=== PATIENT | female | born 1945 | race Two or more races ===

== ENCOUNTER 2021-07-11 15:13 | Inpatient (IN) | payer OTHER ==
[~2021-07-11] VITALS: Ht 162.6 cm; Wt 68.0 kg
--- NOTE | 2021-07-11 15:13 | NUR ---
PT BIBRA 84 FROM HOME C/O COUGH AND WORSENING SOB X 1 WEEK. PT IS AAOX4, NOTED 91% ON RA. HOOKED TO O2 AT 2LPM VIA NC AND WIDE AREA NETWORK ENGINEER. KEPT RESTED AND COMFORTABLE. WILL CONTINUE TO MONITOR.
[2021-07-11] MEDS ORDERED: DEXAMETHASONE SOD PHOSPHATE 4 MG/ML VIAL IV ONE (16:30)
--- NOTE | 2021-07-11 16:40 | NUR ---
IV LINE IS ESTABLISHED, BLOOD SPECIMEN COLLECTED AND SENT TO THE LAB. THE LINE IS SALINE LOCKED.
[2021-07-11] MEDS ORDERED: CYCL10TA9 PO ×2 (16:47)
[2021-07-11] MEDS ORDERED: MULT-1160 PO (16:47)
[2021-07-11] MEDS ORDERED: ATOR40TA PO (16:47)
[2021-07-11] MEDS ORDERED: LISI20TA30 PO (16:47)
[2021-07-11] MEDS ORDERED: GABA600T12 PO (16:47)
[2021-07-11] MEDS ORDERED: ATEN50TA PO (16:47)
[2021-07-11] MEDS ORDERED: ALBU8.5H8 IH (16:47)
[2021-07-11] MEDS ORDERED: CLON0.5T4 PO (16:47)
[2021-07-11] MEDS ORDERED: PANT40TA49 PO (16:47)
[2021-07-11] MEDS ORDERED: VIT1CAPS44 PO (16:47)
[2021-07-11] MEDS ORDERED: DOXY-326 PO (16:47)
[2021-07-11] MEDS ORDERED: AMLO-213 PO (16:47)
[2021-07-11] MEDS ORDERED: DEXAMETHASONE SOD PHOSPHATE 10 MG/ML VIAL ONE (17:00)
[2021-07-11 17:17] LABS: BASOPHILS % (AUTO) 0.5 % (0.0-2.0); EOSINOPHILS % (AUTO) 7.7 % (0.0-6.0); HEMATOCRIT 41 % (33-45); HEMOGLOBIN 13.8 g/dL (11.5-14.8); LYMPHOCYTES # (AUTO) 1.3 K/uL (0.8-4.8); LYMPHOCYTES % (AUTO) 14.4 % (20.0-44.0); MEAN CORPUSCULAR HGB CONC 34 g/dl (31.0-36.0); MEAN CORPUSCULAR VOLUME 84 fL (82-100); MONOCYTES # (AUTO) 0.7 K/uL (0.1-1.30); MONOCYTES % (AUTO) 7.8 % (2.0-12.0); NEUTROPHILS # (AUTO) 6.4 K/uL (1.8-8.9); NEUTROPHILS % (AUTO) 69.6 % (43.0-81.0); PLATELET COUNT (AUTO) 193 K/uL (150-450); RED BLOOD CELL COUNT(AUTO) 4.86 MIL/uL (4.0-5.2); WHITE BLOOD COUNT (AUTO) 9.3 K/uL (4.3-11.0)
--- NOTE | 2021-07-11 17:17 | NUR ---
COVID ANTIGEN AND PCR SWABS DONE AND SENT TO THE LAB
[2021-07-11 17:37] LABS: D-DIMER 1.1 mg/L(FEU (0.17-0.50)
[2021-07-11 17:46] LABS: CARBON DIOXIDE 27 mmol/L (21-32); CHLORIDE 106 mmol/L (98-107); CREATININE 0.8 mg/dL (0.6-1.3); GLUCOSE 85 mg/dL (74-106); POTASSIUM 3.9 mmol/L (3.5-5.1); SODIUM SERUM 145 mmol/L (136-145); UREA NITROGEN, BLOOD 13 mg/dL (7-18)
[2021-07-11 17:48] LABS: CREATINE KINASE, TOTAL 138 U/L (26-192)
[2021-07-11 18:00] LABS: C-REACTIVE PROTEIN < 0.2 mg/dL (0.0-0.9)
[2021-07-11 18:04] LABS: ALANINE AMINOTRANSFERASE 22 U/L (12-78); ALBUMIN 4.1 g/dL (3.4-5.0); ALKALINE PHOSPHATASE 114 U/L (46-116); ASPARTATE AMINOTRANSFERASE 15 U/L (15-37); BILIRUBIN,TOTAL 0.7 mg/dL (0.2-1.0); TOTAL PROTEIN, SERUM 7.6 g/dL (6.4-8.2)
[2021-07-11] MEDS ORDERED: IPRATROPIUM NEB FS 0.5 MG/2.5 ML AMPUL.NEB ONE (18:27)
[2021-07-11] MEDS ORDERED: ALBUTEROL FS 2.5 MG/3 ML VIAL.NEB ONE (18:27)
[2021-07-11] MEDS ORDERED: ALBUTEROL FS 2.5 MG/3 ML VIAL.NEB NEB ONE (18:30)
[2021-07-11] MEDS ORDERED: IPRATROPIUM NEB FS 0.5 MG/2.5 ML AMPUL.NEB NEB ONE (18:30)
--- NOTE | 2021-07-11 19:11 | NUR ---
MANDI HERNANDEZ CALLED AND GAVE AUTH # [id number].
[2021-07-11] MEDS ORDERED: HYDROCODONE/APAP 5/325MG TABLET ONE (19:28)
[2021-07-11] MEDS ORDERED: HYDROCODONE/APAP 5/325MG TABLET PO ONE (19:30)
[2021-07-11] MEDS ORDERED: IOHEXOL-350 100 ML VIAL IV ONE (19:39)
[2021-07-11] MEDS ORDERED: MAGNESIUM HYDROXIDE 30 ML UDC PO PRN (20:30)
[2021-07-11] MEDS ORDERED: ZOLPIDEM TARTRATE 5 MG TABLET PO PRN (20:30)
[2021-07-11] MEDS ORDERED: ONDANSETRON HCL/PF 4 MG/2 ML VIAL IVP PRN (20:30)
[2021-07-11] MEDS ORDERED: MAG HYDROX/AL HYDROX/SIMETH 30 ML UDC PO PRN (20:30)
[2021-07-11] MEDS ORDERED: Z GUARD REMEDY 4 OZ OINT TP PRN (20:30)
[2021-07-11] MEDS ORDERED: IPRATROPIUM NEB FS 0.5 MG/2.5 ML AMPUL.NEB NEB PRN (20:30)
[2021-07-11] MEDS ORDERED: ALBUTEROL FS 2.5 MG/3 ML VIAL.NEB NEB PRN (20:30)
[2021-07-11] MEDS: CYCLOBENZAPRINE 10 MG TABLET PO SCH (21:00)
[2021-07-11] MEDS ORDERED: clonazePAM 0.5 MG TABLET ONE (22:43)
[2021-07-11] MEDS ORDERED: CYCLOBENZAPRINE 10 MG TABLET ONE (22:43)
[2021-07-11] MEDS: clonazePAM 0.5 MG TABLET PO SCH (22:50)
[2021-07-12] MEDS ORDERED: ACETAMINOPHEN 325 MG TABLET ONE ×2 (00:40→11:25)
[2021-07-12] MEDS: ACETAMINOPHEN 325 MG TABLET PO PRN ×2 (00:44→11:27)
[2021-07-12] MEDS ORDERED: ZOLPIDEM TARTRATE 5 MG TABLET ONE ×2 (03:23→22:07)
--- NOTE | 2021-07-12 03:24 | NUR ---
PER DR CHRIS LITTLE TO GIVE AMBIEN ONCE.
[2021-07-12] MEDS ORDERED: ZOLPIDEM TARTRATE 5 MG TABLET PO PRN (03:30)
[2021-07-12 08:04] LABS: BASOPHILS % (AUTO) 0.1 % (0.0-2.0); EOSINOPHILS % (AUTO) 0.2 % (0.0-6.0); HEMATOCRIT 40 % (33-45); HEMOGLOBIN 13.6 g/dL (11.5-14.8); LYMPHOCYTES # (AUTO) 0.9 K/uL (0.8-4.8); MEAN CORPUSCULAR HGB CONC 34 g/dl (31.0-36.0); MEAN CORPUSCULAR VOLUME 83 fL (82-100); MONOCYTES # (AUTO) 0.1 K/uL (0.1-1.30); MONOCYTES % (AUTO) 1.5 % (2.0-12.0); NEUTROPHILS # (AUTO) 6.3 K/uL (1.8-8.9); NEUTROPHILS % (AUTO) 86.2 % (43.0-81.0); PLATELET COUNT (AUTO) 193 K/uL (150-450); RED BLOOD CELL COUNT(AUTO) 4.82 MIL/uL (4.0-5.2); WHITE BLOOD COUNT (AUTO) 7.3 K/uL (4.3-11.0)
[2021-07-12 08:21] LABS: CALCIUM, SERUM 10.2 mg/dL (8.5-10.1); CREATININE 0.8 mg/dL (0.6-1.3); MAGNESIUM 2.3 mg/dL (1.8-2.4); PHOSPHORUS 4.7 mg/dL (2.5-4.9); POTASSIUM 3.8 mmol/L (3.5-5.1)
[2021-07-12] MEDS ORDERED: GABAPENTIN 300 MG CAPSULE ONE ×3 (08:56→17:28)
[2021-07-12] MEDS ORDERED: CYCLOBENZAPRINE 10 MG TABLET ONE ×2 (08:56→21:18)
[2021-07-12] MEDS ORDERED: DOXYCYCLINE HYCLATE (100 MG) 100 MG TABLET ONE ×2 (08:56→21:18)
[2021-07-12] MEDS ORDERED: PANTOPRAZOLE 40 MG TABLET.DR PO ONE ×2 (08:57→17:28)
[2021-07-12] MEDS: PANTOPRAZOLE 40 MG TABLET.DR PO SCH ×2 (08:59→17:30)
[2021-07-12] MEDS: CYCLOBENZAPRINE 10 MG TABLET PO SCH ×2 (09:02→21:21)
[2021-07-12] MEDS: MULTIVITAMIN/LUTEIN/MINERALS 1 TAB PO SCH (09:03)
[2021-07-12] MEDS: DOXYCYCLINE HYCLATE (100 MG) 100 MG TABLET PO SCH ×2 (09:03→21:21)
[2021-07-12] MEDS: MULTIVIT W/MINERALS 1 TAB TABLET PO SCH (09:03)
[2021-07-12] MEDS: GABAPENTIN 300 MG CAPSULE PO SCH ×3 (09:03→17:30)
--- NOTE | 2021-07-12 09:03 | NUR ---
PROVIDED BREAKFAST, TOLERATED WELL
[2021-07-12] MEDS ORDERED: MORPHINE SULFATE INJ 2 MG/ML DISP.SYRIN IV PRN (12:30)
[2021-07-12] MEDS ORDERED: DEXAMETHASONE SOD PHOSPHATE 10 MG/ML VIAL ONE (12:51)
[2021-07-12] MEDS ORDERED: ENOXAPARIN SODIUM 40 MG/0.4 ML DISP.SYRIN SQ ONE (12:51)
[2021-07-12] MEDS: ENOXAPARIN SODIUM 40 MG/0.4 ML DISP.SYRIN SQ SCH (13:00)
[2021-07-12] MEDS: DEXAMETHASONE SOD PHOSPHATE 10 MG/ML VIAL IV SCH (13:00)
--- NOTE | 2021-07-12 14:41 | NUR ---
ATTEMPTED TO GIVE REPORT, RN ON LUNCH, WILL CALL AGAIN
--- NOTE | 2021-07-12 14:59 | NUR ---
GOING TO BED 108
[2021-07-12] MEDS ORDERED: IPRATROPIUM BROMIDE 14 GM INHALER (or 12.9 GM) IH PRN (15:00)
[2021-07-12] MEDS ORDERED: ALBUTEROL SULFATE 8 GM HFA.AER.AD IH PRN (15:00)
[2021-07-12] MEDS: AMLODIPINE BESYLATE 10 MG TABLET PO SCH (18:00)
[2021-07-12] MEDS ORDERED: ATORVASTATIN 40 MG TABLET ONE (18:00)
[2021-07-12] MEDS ORDERED: ATENOLOL 50 MG TABLET ONE (18:01)
[2021-07-12] MEDS ORDERED: AMLODIPINE BESYLATE 10 MG TABLET ONE (18:01)
[2021-07-12] MEDS: ATORVASTATIN 40 MG TABLET PO SCH (18:05)
[2021-07-12] MEDS: ATENOLOL 50 MG TABLET PO SCH (18:06)
[2021-07-12] MEDS: LISINOPRIL (20MG) 20 MG TABLET PO SCH (19:10)
[2021-07-12] MEDS ORDERED: clonazePAM 0.5 MG TABLET ONE (22:01)
[2021-07-12] MEDS: clonazePAM 0.5 MG TABLET PO SCH (22:11)
--- NOTE | 2021-07-12 23:18 | NUR ---
PATIENT WATCHING TV ON THE PHONE NO C/O AT THIS TIME.
--- NOTE | 2021-07-12 23:48 | NUR ---
PT PROVIDED WITH PILLOW FOR COMFORT.
[2021-07-13] MEDS: CYCLOBENZAPRINE 10 MG TABLET PO PRN ×2 (00:54→14:52)
[2021-07-13] MEDS ORDERED: CYCLOBENZAPRINE 10 MG TABLET ONE ×3 (00:54→14:51)
[2021-07-13] MEDS ORDERED: ACETAMINOPHEN 325 MG TABLET ONE (03:50)
[2021-07-13] MEDS: ACETAMINOPHEN 325 MG TABLET PO PRN (03:53)
[2021-07-13 05:56] LABS: BASOPHILS % (AUTO) 0.2 % (0.0-2.0); EOSINOPHILS % (AUTO) 0.1 % (0.0-6.0); HEMATOCRIT 39 % (33-45); HEMOGLOBIN 13.1 g/dL (11.5-14.8); LYMPHOCYTES # (AUTO) 1.1 K/uL (0.8-4.8); LYMPHOCYTES % (AUTO) 9.6 % (20.0-44.0); MEAN CORPUSCULAR HGB CONC 34 g/dl (31.0-36.0); MEAN CORPUSCULAR VOLUME 84 fL (82-100); MONOCYTES # (AUTO) 0.5 K/uL (0.1-1.30); MONOCYTES % (AUTO) 4.7 % (2.0-12.0); NEUTROPHILS # (AUTO) 9.7 K/uL (1.8-8.9); NEUTROPHILS % (AUTO) 85.4 % (43.0-81.0); PLATELET COUNT (AUTO) 198 K/uL (150-450); RED BLOOD CELL COUNT(AUTO) 4.62 MIL/uL (4.0-5.2); WHITE BLOOD COUNT (AUTO) 11.3 K/uL (4.3-11.0)
[2021-07-13 06:14] LABS: CARBON DIOXIDE 27 mmol/L (21-32); CHLORIDE 104 mmol/L (98-107); POTASSIUM 3.8 mmol/L (3.5-5.1); SODIUM SERUM 140 mmol/L (136-145)
[2021-07-13 06:15] LABS: CALCIUM, SERUM 10.3 mg/dL (8.5-10.1); CREATININE 0.8 mg/dL (0.6-1.3); GLUCOSE 135 mg/dL (74-106); MAGNESIUM 2.4 mg/dL (1.8-2.4); PHOSPHORUS 3.3 mg/dL (2.5-4.9); UREA NITROGEN, BLOOD 20 mg/dL (7-18)
[2021-07-13] MEDS ORDERED: PANTOPRAZOLE 40 MG TABLET.DR PO ONE ×2 (07:40→16:52)
[2021-07-13] MEDS: PANTOPRAZOLE 40 MG TABLET.DR PO SCH ×2 (07:40→16:41)
[2021-07-13] MEDS ORDERED: DEXAMETHASONE SOD PHOSPHATE 10 MG/ML VIAL ONE (09:07)
[2021-07-13] MEDS ORDERED: DOXYCYCLINE HYCLATE (100 MG) 100 MG TABLET ONE (09:08)
[2021-07-13] MEDS ORDERED: GABAPENTIN 300 MG CAPSULE ONE ×2 (09:08→14:28)
[2021-07-13] MEDS ORDERED: MULTIVIT W/MINERALS 1 TAB TABLET ONE (09:09)
[2021-07-13] MEDS: CYCLOBENZAPRINE 10 MG TABLET PO SCH ×2 (09:19→22:11)
[2021-07-13] MEDS: GABAPENTIN 300 MG CAPSULE PO SCH ×3 (09:20→22:12)
[2021-07-13] MEDS: MULTIVIT W/MINERALS 1 TAB TABLET PO SCH (09:20)
[2021-07-13] MEDS: DEXAMETHASONE SOD PHOSPHATE 10 MG/ML VIAL IV SCH (09:20)
[2021-07-13] MEDS: DOXYCYCLINE HYCLATE (100 MG) 100 MG TABLET PO SCH ×2 (09:20→22:13)
[2021-07-13] MEDS: MULTIVITAMIN/LUTEIN/MINERALS 1 TAB PO SCH (10:00)
[2021-07-13] MEDS: ENOXAPARIN SODIUM 40 MG/0.4 ML DISP.SYRIN SQ SCH (13:30)
[2021-07-13] MEDS ORDERED: ENOXAPARIN SODIUM 40 MG/0.4 ML DISP.SYRIN SQ ONE (14:28)
--- NOTE | 2021-07-13 15:55 | NUR ---
SEEN AND EXAMINED BY JOS BHAT.
[2021-07-13] MEDS ORDERED: ATORVASTATIN 40 MG TABLET ONE (17:56)
[2021-07-13] MEDS ORDERED: AMLODIPINE BESYLATE 10 MG TABLET ONE (17:56)
[2021-07-13] MEDS ORDERED: ATENOLOL 50 MG TABLET ONE (17:56)
[2021-07-13] MEDS: ATORVASTATIN 40 MG TABLET PO SCH (18:01)
[2021-07-13] MEDS: AMLODIPINE BESYLATE 10 MG TABLET PO SCH (18:01)
[2021-07-13] MEDS: ATENOLOL 50 MG TABLET PO SCH (18:02)
[2021-07-13] MEDS: LISINOPRIL (20MG) 20 MG TABLET PO SCH (18:02)
--- NOTE | 2021-07-13 19:53 | NUR ---
REPORT GIVEN TO NURSE SARA FOR MILEY
[2021-07-13 20:00] VITALS: BP 119/80
--- NOTE | 2021-07-13 20:32 | NUR ---
report given to debby ridley
--- NOTE | 2021-07-13 20:33 | NUR ---
transferring pt to 107 per acls
--- NOTE | 2021-07-13 20:40 | NUR ---
2039 ADMITTED FROM ER 76 YEAR OLD FEMALE WITH DX OF ACUTE HYPOXIC RESPIRATORY FAILURE. AAOX4. ABLE TO AMBULATE TO BED WITHOUT ASSIST. ADMISSION ASSESSMENT DONE. VITAL SIGNS TAKEN. NOTED WITH MILD SOB ON EXERTION. O2 SATURATION 95% ON ROOM AIR, PLACED ON O2 AT 2L PER NC PT. C/O SHORTNESS OF BREATH WHEN MOVING. ADMISSION CARE RENDERED. CONNECTED TO COMPUTER AIDED DESIGN DESIGNER. CALL LIGHT PLACED WITHIN REACH AND INSTRUCTED TO CALL FOR ASSISTANCE. ISOLATION FOR R/O COVID STRICTLY FOLLOWED.
[2021-07-13 21:00] VITALS: BP 123/84
--- NOTE | 2021-07-13 21:00 | NUR ---
SUBSTATION OPERATOR AUTOMATICMOVER HELPER NOTE PATIENT BELONGINGS CHECKED. NEW ID BAND ON PATIENT. PATIENT WISHES TO BE FULL CODE AT THIS TIME. TELE MONIOTR READING NSR 70'S. V/S FOLLOWS: BP: 123/84, HR-79, TEMP- 97.8, RR-20, SATURATION 97% WITHOUT O2. PATIENT DOES C/O SOB EVERY NOW AND THEN HENCE PRN O2 AVAILABLE WHEN SHE WISHES.
[2021-07-13 21:24] VITALS: BP 123/84
[2021-07-13] MEDS ORDERED: MONTELUKAST SODIUM (10MG) 10 MG TABLET PO SCH (22:00)
[2021-07-13] MEDS: clonazePAM 0.5 MG TABLET PO SCH (22:13)
[2021-07-14 01:00] VITALS: BP 102/65
[2021-07-14 05:00] VITALS: BP 115/75
--- NOTE | 2021-07-14 06:35 | NUR ---
[employer] [employer] UTILITY WORKER CLOSING NOTE PATIENT IN BED WITH EYES CLOSED. A/OX4. AMBULATING TO THE RESTROOM WITH STEADY GAITS. NO S/S OF APPARENT DISTRESS ON 2LPM O2 VIA NC. DENIES PAIN. NEEDS ATTENDED. ALL SCHEDULED MEDS ADMINISTERED. NO FLUIDS RUNNING AT THIS TIME. SAFETY IN PLACE. ISOLATION PRECAUTION SAFELY FOLLOWED. WILL ENDORSE TO MORNING RN FOR CONTINUITY OF CARE.
[2021-07-14] MEDS: PANTOPRAZOLE 40 MG TABLET.DR PO SCH ×2 (07:11→16:51)
[2021-07-14 07:36] LABS: BASOPHILS % (AUTO) 0.1 % (0.0-2.0); EOSINOPHILS % (AUTO) 0.8 % (0.0-6.0); HEMATOCRIT 38 % (33-45); HEMOGLOBIN 13.1 g/dL (11.5-14.8); LYMPHOCYTES # (AUTO) 1.7 K/uL (0.8-4.8); LYMPHOCYTES % (AUTO) 15.9 % (20.0-44.0); MEAN CORPUSCULAR HGB CONC 35 g/dl (31.0-36.0); MEAN CORPUSCULAR VOLUME 83 fL (82-100); MONOCYTES # (AUTO) 0.7 K/uL (0.1-1.30); MONOCYTES % (AUTO) 6.8 % (2.0-12.0); NEUTROPHILS # (AUTO) 8.1 K/uL (1.8-8.9); NEUTROPHILS % (AUTO) 76.4 % (43.0-81.0); PLATELET COUNT (AUTO) 190 K/uL (150-450); RED BLOOD CELL COUNT(AUTO) 4.54 MIL/uL (4.0-5.2); WHITE BLOOD COUNT (AUTO) 10.6 K/uL (4.3-11.0)
[2021-07-14 08:00] VITALS: BP 119/57
[2021-07-14] MEDS: MULTIVITAMIN/LUTEIN/MINERALS 1 TAB PO SCH (08:02)
[2021-07-14] MEDS: DEXAMETHASONE SOD PHOSPHATE 10 MG/ML VIAL IV SCH (08:02)
[2021-07-14] MEDS: GABAPENTIN 300 MG CAPSULE PO SCH ×3 (08:02→20:20)
[2021-07-14] MEDS: DOXYCYCLINE HYCLATE (100 MG) 100 MG TABLET PO SCH (08:02)
[2021-07-14] MEDS: CYCLOBENZAPRINE 10 MG TABLET PO SCH ×2 (08:03→20:19)
[2021-07-14] MEDS: MULTIVIT W/MINERALS 1 TAB TABLET PO SCH (08:07)
[2021-07-14 08:11] LABS: CALCIUM, SERUM 9.6 mg/dL (8.5-10.1); CREATININE 0.8 mg/dL (0.6-1.3); MAGNESIUM 2.4 mg/dL (1.8-2.4); PHOSPHORUS 3.3 mg/dL (2.5-4.9); POTASSIUM 3.6 mmol/L (3.5-5.1)
--- NOTE | 2021-07-14 08:23 | NUR ---
per [place] covid negative. notified.
[2021-07-14] MEDS ORDERED: MONT10TA22 PO (10:39)
--- NOTE | 2021-07-14 10:58 | NUR ---
PATIENT AT REST ROOM AIR SATURATION 86 TO 88%, NOTIFIED ORDERED HOME OXYGEN CM AWARE.
[2021-07-14 12:00] VITALS: BP 129/91
[2021-07-14] MEDS: ENOXAPARIN SODIUM 40 MG/0.4 ML DISP.SYRIN SQ SCH (12:30)
[2021-07-14] MEDS ORDERED: AZIT500T2 PO (12:55)
[2021-07-14] MEDS: ACETAMINOPHEN 325 MG TABLET PO PRN (15:18)
[2021-07-14 16:00] VITALS: BP 110/69
--- NOTE | 2021-07-14 16:00 | NUR ---
PATIENT WILL BE DC HOME WITH O2, AWAITING FOR O2 TO BE DELIVERED.
--- NOTE | 2021-07-14 17:00 | NUR ---
AWAITING STILL FOR O2 TO BE DELIVERED, ETA AT 730PM, TRANSPORTATION SCHEDULED AT [facility] .
[2021-07-14] MEDS: ATORVASTATIN 40 MG TABLET PO SCH (17:04)
[2021-07-14] MEDS: ATENOLOL 50 MG TABLET PO SCH (17:05)
[2021-07-14] MEDS: LISINOPRIL (20MG) 20 MG TABLET PO SCH (17:05)
[2021-07-14] MEDS: AMLODIPINE BESYLATE 10 MG TABLET PO SCH (17:06)
--- NOTE | 2021-07-14 19:47 | NUR ---
PATIENT AWAITING FOR TRANSPORTATION, AWARE THAT AMBULANCE IS COMING AT 2000, ALL DC PAPERWORK WITH PATIENT, ENDORSED TO SOCO BROWN FOR CONTINUATION OF CARE
[2021-07-14 20:00] VITALS: BP 136/87
--- NOTE | 2021-07-14 20:30 | NUR ---
ms rn notes Pts was picked up by ambulance [facility] with 2 emt in stable condition .pts is going home a/o x 4 , discharge instruction and medication well explain to pts verbalized understanding . pts discharged with oxygen concentrator and oxygen tank on 2 liters . .education given on how to operate both machine pts verbalized understanding .pts left the hospital at 2030hrs in stable condition.
== END 2021-07-14 21:08 | disposition home or self-care (01) | DRG 189 ==
LOC: ER 15:26 → TRANSITION 20:52 → TELE1 07-13 20:02 → ICU 07-14 13:55 → MEDSG1 07-14 14:20
PROVIDERS: ADMIT Family Medicine; ATTEND Registered Nurse
DX: J96.01 Acute respiratory failure with hypoxia (principal); K21.9 Gastro-esophageal reflux disease without esophagitis; Z20.822 Contact with and (suspected) exposure to COVID-19; M79.7 Fibromyalgia; I10 Essential (primary) hypertension; E78.5 Hyperlipidemia, unspecified; Z88.5 Allergy status to narcotic agent; Z88.0 Allergy status to penicillin; Z09 Encounter for follow-up examination after completed treatment for conditions other than malignant neoplasm; Z79.51 Long term (current) use of inhaled steroids; Z79.899 Other long term (current) drug therapy; F41.9 Anxiety disorder, unspecified; G62.9 Polyneuropathy, unspecified; G89.29 Other chronic pain; J98.01 Acute bronchospasm; D72.829 Elevated white blood cell count, unspecified; R91.8 Other nonspecific abnormal finding of lung field
CPT/HCPCS: 36415; 70220-TC; 71045-TC; 80048-TC; 80053-TC; 82550-TC; 83605-TC; 83615-TC; 83735-TC; 83880; 84100-TC; 84484-TC; 85025-TC; 85378-TC; 85730-TC; 86140-TC; 87040-TC; 87081-TC; 97116-TC; 97530-TC; C9803; G0378; J1100; J1650; J2405; Q9967; U0003

== ENCOUNTER 2024-03-27 08:14 | Emergency (ER) | payer OTHER ==
[~2024-03-27] VITALS: Ht 162.6 cm; Wt 68.0 kg
[~2024-03-27 08:14] MED LIST: ALBU8.5H8 IH; AMLO-213 PO; ATEN50TA PO; ATOR40TA PO; AZIT500T2 PO; CLON0.5T4 PO; CYCL10TA9 PO; DOXY-326 PO; GABA600T12 PO; LISI20TA30 PO; MONT10TA22 PO; MULT-1160 PO; PANT40TA49 PO; VIT1CAPS44 PO
[2024-03-27] MEDS ORDERED: oxyCODONE/APAP (5/325 MG) 1 UDTAB TABLET ONE (09:01)
[2024-03-27] MEDS ORDERED: KETOROLAC TROMETHAMINE INJ 30 MG/ML VIAL ONE (09:01)
[2024-03-27] MEDS ORDERED: ONDANSETRON 4 MG TAB.RAPDIS ONE (09:02)
[2024-03-27] MEDS: ONDANSETRON 4 MG TAB.RAPDIS SL ONE (09:10)
[2024-03-27] MEDS: oxyCODONE/APAP (5/325 MG) 1 UDTAB TABLET PO ONE (09:10)
[2024-03-27] MEDS: KETOROLAC TROMETHAMINE INJ 60 MG/2 ML VIAL IM ONE (09:10)
[2024-03-27 11:29] VITALS: BP 134/69; TEMP 97.9; O2SAT 99
== END 2024-03-27 11:30 | disposition home or self-care (01) ==
LOC: ER 08:20
DX: M25.552 Pain in left hip (principal); I10 Essential (primary) hypertension; Z88.0 Allergy status to penicillin; Z88.5 Allergy status to narcotic agent
CPT/HCPCS: 99283; 96372; J1885; Q0162

== ENCOUNTER 2024-07-23 12:07 | Emergency (ER) | payer OTHER ==
[~2024-07-23] VITALS: Ht 160 cm; Wt 64.9 kg
[2024-07-23] MEDS: IV NS 0.9% 1,000 ML BAG IV ONE (13:09)
[2024-07-23 13:17] LABS: BASOPHILS % (AUTO) 0.3 % (0.0-2.0); CALCIUM, SERUM 10.2 mg/dL (8.5-10.1); CREATININE 0.8 mg/dL (0.6-1.3); EOSINOPHILS # (AUTO) 0.1 K/uL (0.0-0.7); EOSINOPHILS % (AUTO) 0.7 % (0.0-6.0); HEMATOCRIT 41 % (33-45); HEMOGLOBIN 13.9 g/dL (11.5-14.8); LYMPHOCYTES # (AUTO) 1.7 K/uL (0.8-4.8); LYMPHOCYTES % (AUTO) 20.9 % (20.0-44.0); MEAN CORPUSCULAR HEMOGLOBIN 28 PG (26.0-33.0); MEAN CORPUSCULAR HGB CONC 34 g/dl (31.0-36.0); MEAN CORPUSCULAR VOLUME 81 fL (82-100); MONOCYTES # (AUTO) 0.5 K/uL (0.1-1.30); MONOCYTES % (AUTO) 6.6 % (2.0-12.0); NEUTROPHILS # (AUTO) 5.8 K/uL (1.8-8.9); NEUTROPHILS % (AUTO) 71.5 % (43.0-81.0); PLATELET COUNT (AUTO) 156 K/uL (150-450); POTASSIUM 4.1 mmol/L (3.5-5.1); RED BLOOD CELL COUNT(AUTO) 5.05 MIL/uL (4.0-5.2); RED CELL DISTRIBUTION WIDTH 15.9 % (11.5-15.0); WHITE BLOOD COUNT (AUTO) 8.2 K/uL (4.3-11.0)
[2024-07-23 13:22] LABS: ALBUMIN 4.4 g/dL (3.4-5.0); BILIRUBIN,DIRECT 0.2 mg/dL (0.0-0.2); BILIRUBIN,TOTAL 0.9 mg/dL (0.2-1.0)
[2024-07-23 15:50] VITALS: BP 104/69; TEMP 98.2; O2SAT 96
== END 2024-07-23 15:52 | disposition home or self-care (01) ==
LOC: ER 12:10
DX: R19.7 Diarrhea, unspecified (principal); E86.0 Dehydration; R50.9 Fever, unspecified; I10 Essential (primary) hypertension; Z79.899 Other long term (current) drug therapy; Z88.0 Allergy status to penicillin; Z88.5 Allergy status to narcotic agent
CPT/HCPCS: 99285; 74176; 96360; 71045; 85025; 80048; 83690; 80076; 36415; J7030

== ENCOUNTER 2024-11-16 17:49 | Inpatient (IN) | payer OTHER ==
[~2024-11-16] VITALS: Ht 160 cm; Wt 76.2 kg
[2024-11-16] MEDS ORDERED: KETOROLAC TROMETHAMINE INJ 30 MG/ML VIAL ONE (18:25)
[2024-11-16] MEDS: KETOROLAC TROMETHAMINE INJ 30 MG/ML VIAL IV ONE (18:30)
[2024-11-16 18:37] LABS: BASOPHILS % (AUTO) 0.3 % (0.0-2.0); EOSINOPHILS # (AUTO) 0.3 K/uL (0.0-0.7); EOSINOPHILS % (AUTO) 2.9 % (0.0-6.0); HEMATOCRIT 41 % (33-45); HEMOGLOBIN 13.7 g/dL (11.5-14.8); LYMPHOCYTES # (AUTO) 2.4 K/uL (0.8-4.8); LYMPHOCYTES % (AUTO) 22.7 % (20.0-44.0); MEAN CORPUSCULAR HEMOGLOBIN 30 PG (26.0-33.0); MEAN CORPUSCULAR HGB CONC 34 g/dl (31.0-36.0); MEAN CORPUSCULAR VOLUME 88 fL (82-100); MONOCYTES # (AUTO) 0.6 K/uL (0.1-1.30); NEUTROPHILS # (AUTO) 7.1 K/uL (1.8-8.9); NEUTROPHILS % (AUTO) 68.1 % (43.0-81.0); PLATELET COUNT (AUTO) 178 K/uL (150-450); RED BLOOD CELL COUNT(AUTO) 4.61 MIL/uL (4.0-5.2); RED CELL DISTRIBUTION WIDTH 14.4 % (11.5-15.0); WHITE BLOOD COUNT (AUTO) 10.4 K/uL (4.3-11.0)
[2024-11-16 18:42] LABS: CREATININE 0.6 mg/dL (0.6-1.3); POTASSIUM 3.7 mmol/L (3.5-5.1)
[2024-11-16 18:48] LABS: ALBUMIN 4.1 g/dL (3.4-5.0); BILIRUBIN,DIRECT 0.1 mg/dL (0.0-0.2); BILIRUBIN,TOTAL 0.6 mg/dL (0.2-1.0); TOTAL PROTEIN, SERUM 7.5 g/dL (6.4-8.2)
[2024-11-16 18:51] LABS: INR 0.96 (0.91-1.10); PARTIAL THROMBOPLASTIN TIME 25.7 SEC (24.3-34.3); PROTHROMBIN TIME 10.2 SECS (9.2-11.1)
[2024-11-16] MEDS ORDERED: HYDROCODONE/APAP 5/325MG TABLET ONE ×2 (19:21→22:45)
[2024-11-16] MEDS: HYDROCODONE/APAP 5/325MG TABLET PO ONE (19:31)
[2024-11-16 20:00] VITALS: BP 124/71; TEMP 98.1; O2SAT 96
[2024-11-16] MEDS ORDERED: ACETAMINOPHEN 325 MG TABLET PO PRN (22:00)
[2024-11-16] MEDS ORDERED: MAGNESIUM HYDROXIDE 30 ML UDC PO PRN (22:00)
[2024-11-16] MEDS ORDERED: ZOLPIDEM TARTRATE 5 MG TABLET PO PRN (22:00)
[2024-11-16] MEDS ORDERED: Z GUARD REMEDY 4 OZ OINT TP PRN (22:00)
[2024-11-16] MEDS ORDERED: MAG HYDROX/AL HYDROX/SIMETH 30 ML UDC PO PRN (22:00)
[2024-11-16] MEDS ORDERED: ONDANSETRON HCL/PF 4 MG/2 ML VIAL IVP PRN (22:00)
[2024-11-16] MEDS: HYDROCODONE/APAP 5/325MG TABLET PO PRN (23:00)
[2024-11-16] MEDS: ENOXAPARIN SODIUM 40 MG/0.4 ML DISP.SYRIN SQ SCH (23:38)
[2024-11-16] MEDS ORDERED: ALBUTEROL FS 2.5 MG/3 ML VIAL.NEB NEB PRN (23:45)
[2024-11-17] MEDS: ATENOLOL 50 MG TABLET PO SCH
[2024-11-17] MEDS: LISINOPRIL (20MG) 20 MG TABLET PO SCH
[2024-11-17] MEDS ORDERED: CYCLOBENZAPRINE 10 MG TABLET PO PRN
[2024-11-17] MEDS: CYCLOBENZAPRINE 10 MG TABLET PO SCH
[2024-11-17] MEDS: clonazePAM 0.5 MG TABLET PO SCH (00:09)
[2024-11-17] MEDS: AMLODIPINE BESYLATE 10 MG TABLET PO SCH (00:09)
[2024-11-17] MEDS: ATORVASTATIN 40 MG TABLET PO SCH (00:09)
[2024-11-17] MEDS: HYDROCODONE/APAP 10/325MG TABLET PO PRN (03:14)
[2024-11-17 07:02] LABS: BASOPHILS % (AUTO) 0.4 % (0.0-2.0); EOSINOPHILS # (AUTO) 0.3 K/uL (0.0-0.7); EOSINOPHILS % (AUTO) 4.3 % (0.0-6.0); HEMATOCRIT 36 % (33-45); HEMOGLOBIN 12.2 g/dL (11.5-14.8); LYMPHOCYTES # (AUTO) 2.3 K/uL (0.8-4.8); LYMPHOCYTES % (AUTO) 31.6 % (20.0-44.0); MEAN CORPUSCULAR HEMOGLOBIN 29 PG (26.0-33.0); MEAN CORPUSCULAR HGB CONC 34 g/dl (31.0-36.0); MEAN CORPUSCULAR VOLUME 86 fL (82-100); MONOCYTES # (AUTO) 0.6 K/uL (0.1-1.30); MONOCYTES % (AUTO) 8.1 % (2.0-12.0); NEUTROPHILS % (AUTO) 55.6 % (43.0-81.0); PLATELET COUNT (AUTO) 153 K/uL (150-450); RED BLOOD CELL COUNT(AUTO) 4.17 MIL/uL (4.0-5.2); RED CELL DISTRIBUTION WIDTH 14.1 % (11.5-15.0); WHITE BLOOD COUNT (AUTO) 7.1 K/uL (4.3-11.0)
[2024-11-17 07:30] LABS: CALCIUM, SERUM 9.4 mg/dL (8.5-10.1); CREATININE 0.6 mg/dL (0.6-1.3); MAGNESIUM 2.2 mg/dL (1.8-2.4); PHOSPHORUS 4.3 mg/dL (2.5-4.9); POTASSIUM 3.6 mmol/L (3.5-5.1)
[2024-11-17] MEDS: PANTOPRAZOLE 40 MG TABLET.DR PO SCH (07:35)
[2024-11-17 08:00] VITALS: BP 130/62; TEMP 98; O2SAT 95
[2024-11-17] MEDS: GABAPENTIN 300 MG CAPSULE PO SCH (08:28)
[2024-11-17] MEDS: MULTIVITAMIN/LUTEIN/MINERALS 1 TAB PO SCH (08:32)
[2024-11-17] MEDS: MULTIPLE VIT (LYCOPENE/FA/MV,CA,IRON,MIN/LUT)1 TAB PO SCH (09:56)
[2024-11-17 16:00] VITALS: BP 142/64; TEMP 98.3; O2SAT 96
[2024-11-17 20:00] VITALS: BP 148/68; TEMP 98.4; O2SAT 97
[2024-11-17] MEDS: MONTELUKAST SODIUM (10MG) 10 MG TABLET PO SCH (21:13)
[2024-11-17 21:15] VITALS: BP 148/68; TEMP 98.4; O2SAT 97
[2024-11-18 07:30] VITALS: BP 137/60; TEMP 98.1; O2SAT 94
[2024-11-18 16:00] VITALS: BP 150/65; TEMP 98.1; O2SAT 96
[2024-11-18 22:07] VITALS: BP 141/59; TEMP 98.1; O2SAT 95
[2024-11-19 08:00] VITALS: BP 124/60; TEMP 97.4; O2SAT 94
[2024-11-19 16:00] VITALS: BP 132/64; TEMP 99; O2SAT 94
[2024-11-19 20:00] VITALS: BP 130/74; TEMP 98.2; O2SAT 99
[2024-11-20 07:30] VITALS: BP 128/60; TEMP 98.1; O2SAT 97
[2024-11-20 12:37] VITALS: BP 127/61
== END 2024-11-20 16:30 | DRG 536 ==
LOC: ER 17:55 → MED 22:33
PROVIDERS: ADMIT Student in an Organized Health Care Education/Training Program
DX: S32.591A Other specified fracture of right pubis, initial encounter for closed fracture (principal); W01.0XXA Fall on same level from slipping, tripping and stumbling without subsequent striking against object, initial encounter; M79.7 Fibromyalgia; G62.9 Polyneuropathy, unspecified; I10 Essential (primary) hypertension; E78.5 Hyperlipidemia, unspecified; F32.A Depression, unspecified; F41.9 Anxiety disorder, unspecified; G89.29 Other chronic pain; Z88.0 Allergy status to penicillin; Z96.642 Presence of left artificial hip joint; Z96.653 Presence of artificial knee joint, bilateral; S32.501A Unspecified fracture of right pubis, initial encounter for closed fracture; Y93.9 Activity, unspecified; Y92.009 Unspecified place in unspecified non-institutional (private) residence as the place of occurrence of the external cause
CPT/HCPCS: 36415; 71045-TC; 72190-TC; 73700-TC; 80048-TC; 80076-TC; 83735-TC; 84100-TC; 85025-TC; 85730-TC; 86850-TC; 97110-TC; 97116-TC; 97530-TC; 97535-TC; G0378; J1650; J1885